=== PATIENT | female | born 1970 | race Caucasian/White ===

== ENCOUNTER 2016-09-22 20:11 | Emergency (ER) | payer MEDICAID ==
[~2016-09-22] VITALS: Ht 160 cm; Wt 51.3 kg
[2016-09-22 20:17] VITALS: BP 122/79
[2016-09-22] MEDS ORDERED: OXYcodone/APAP 5/325MG TABLET ONE (22:26)
[2016-09-22] MEDS ORDERED: OXYcodone/APAP 5/325MG TABLET PO ONE (22:30)
== END 2016-09-22 22:31 | disposition home or self-care (01) ==
LOC: ED 22:25
DX: S92.324A Nondisplaced fracture of second metatarsal bone, right foot, initial encounter for closed fracture (principal); S92.334A Nondisplaced fracture of third metatarsal bone, right foot, initial encounter for closed fracture; S92.341A Displaced fracture of fourth metatarsal bone, right foot, initial encounter for closed fracture; W01.0XXA Fall on same level from slipping, tripping and stumbling without subsequent striking against object, initial encounter; Y93.89 Activity, other specified; Y92.009 Unspecified place in unspecified non-institutional (private) residence as the place of occurrence of the external cause; Y99.8 Other external cause status
CPT/HCPCS: 29515